=== PATIENT | female | born 1980 | race Caucasian/White ===

== ENCOUNTER 2024-04-20 00:33 | Emergency (ER) | payer MEDICAID ==
[~2024-04-20] VITALS: Ht 165.1 cm; Wt 72.0 kg
[2024-04-20 00:40] VITALS: BP 131/88; TEMP 98.5; O2SAT 99
[2024-04-20 00:43] VITALS: PULSE 100; RESP 20
== END 2024-04-20 05:50 | disposition left against medical advice (07) ==
LOC: ER 00:33
DX: N64.4 Mastodynia (principal); Z53.21 Procedure and treatment not carried out due to patient leaving prior to being seen by health care provider